=== PATIENT | male | born 1955 | race Caucasian/White ===

== ENCOUNTER 2021-02-24 10:52 | Outpatient (RCR) | payer MEDICARE, OTHER ==
[2021-05-14] MEDS ORDERED: GABA800T10 PO (13:25)
[2021-05-14] MEDS ORDERED: DILT120C85 PO (13:25)
[2021-05-14] MEDS ORDERED: ATOR20TA66 PO (13:25)
[2021-05-14] MEDS ORDERED: GLIP10TA13 PO (13:25)
[2021-05-14] MEDS ORDERED: METF-399 PO (13:25)
[2021-05-21] MEDS ORDERED: TRAM50TA3 PO (10:46)
[2021-05-21] MEDS ORDERED: CIPR-226 PO (10:46)
[2021-05-21] MEDS ORDERED: ACET1TAB43 PO (12:58)
== END 2021-05-25 | disposition home or self-care (01) ==
LOC: ONC 10:52
PROVIDERS: ATTEND Radiology Radiation Oncology
DX: C61 Malignant neoplasm of prostate (principal); E11.9 Type 2 diabetes mellitus without complications; I10 Essential (primary) hypertension; Z87.891 Personal history of nicotine dependence
CPT/HCPCS: 76873; G0463; 99205

== ENCOUNTER 2021-05-14 05:34 | Outpatient (CLI) | payer MEDICARE ==
[~2021-05-14] VITALS: Ht 175.3 cm; Wt 117.7 kg
[2021-05-14] MEDS ORDERED: ATOR20TA66 PO (13:25)
[2021-05-14] MEDS ORDERED: DILT120C85 PO (13:25)
[2021-05-14] MEDS ORDERED: GLIP10TA13 PO (13:25)
[2021-05-14] MEDS ORDERED: GABA800T10 PO (13:25)
[2021-05-14] MEDS ORDERED: METF-399 PO (13:25)
== END 2021-05-14 14:01 ==
LOC: PREOP 05:34
PROVIDERS: ATTEND Radiology Radiation Oncology
DX: Z01.818 Encounter for other preprocedural examination (principal)

== ENCOUNTER 2021-05-21 09:57 | Day surgery (SDC) | payer MEDICARE ==
[~2021-05-21] VITALS: Ht 175.3 cm; Wt 117.7 kg
[2021-05-21] VITALS (12 sets, daily range): BP systolic 140–191; BP diastolic 73–96
[~2021-05-21 09:57] MED LIST: ATOR20TA66 PO; DILT120C85 PO; GABA800T10 PO; GLIP10TA13 PO; METF-399 PO
[2021-05-21] MEDS ORDERED: LACTATED RINGERS 1,000 ML IV PRN (10:15)
--- OUTSIDE RECORDS SUMMARY | 2021-05-21 10:40 | XMS REPORT | Clinical Summary ---
Author Author [facility] Organization [facility] Address Unknown Phone Unavailable Care Team Providers Care Casino Surveillance Officer Name Role Phone BernadetteCarloscitlalliAlbin Rigoberto DO PCP VickFabian DO Unavailable Source Comments Some departments are not documenting in the electronic medical record. If you d o not see the information that you expected, contact Release of Information in [facility] [employer] Information Management department at [phone] for further assistan ce in locating additional records.[facility] Allergies No Known Active Allergies Medications End Date Status Medication Sig Dispensed Refills Start Date Active glipiZIDE (GLUCOTROL) 10 Take 10 mg by 0 mg tablet mouth daily. Active atorvastatin (LIPITOR) 20 Take 20 mg by 0 mg tablet mouth daily. Active ascorbic acid (KRISTIE-C PO) Take by 0 mouth daily. Active dilTIAZem HCL (CARDIZEM) Take by 0 120 mg tablet mouth every 6 hours. Active Ferrous Sulfate 325 mg Take by 0 (65 mg iron) cpER mouth daily. Active pioglitazone (ACTOS) 15 Take 15 mg by 0 mg tablet mouth daily. Active furosemide (LASIX) 40 mg Take 40 mg by 0 tablet mouth every morning. Active meloxicam (MOBIC) 7.5 mg Take 7.5 mg 0 tablet by mouth daily. Active cyclobenzaprine Take 10 mg by 0 (FLEXERIL) 10 mg tablet mouth FLUSH TID. Active Problems No known active problems Surgical History Surgery Date Site/Laterality Comments BRAIN SURGERY 09/13/1999 - 09/12/2000 NECK SURGERY 09/13/2017 - 09/12/2018 LUNG BIOPSY 09/13/2018 - 09/12/2019 Medical History Medical History Date Comments Diabetes mellitus (HCC) Cancer of prostate (HCC) Social History Date Tobacco Use Types Packs/Day Years Used Quit: 07/24/1998 Former Smoker Smokeless Tobacco: Never Used Comments Alcohol Use Standard Drinks/Week quit in 1990 Not Currently 0 (1 standard drink = 0.6 o z pure alcohol) Alcohol Habits Answer Date Recorded How often do you have a drink containing alcohol? Never 10/25/2019 How many drinks containing alcohol do you have on No t asked a typical day when you are drinking? How often do you have six or more drinks on one Not asked occasion? Comment: quit in 199010/25/2019 Sex Assigned at Date Recorded Not on file Last Filed Vital Signs Reading Time Taken Comments Vital Sign 159/60 10/25/2019 1:23 PM [employer] Blood Pressure 93 10/25/2019 1:23 PM [employer] Pulse 37.2 C (98.9 F) 10/25/2019 1:23 PM [employer] Temperature 16 10/25/2019 1:23 PM [employer] Respiratory Rate 87% 10/25/2019 1:23 PM [employer] Oxygen Saturation - - Inhaled Oxygen Concentration 126.2 kg (278 lb 3.2 oz) 10/25/2019 1:23 PM [employer] Weight 168.5 cm (5' 6.34") 10/25/2019 1:23 PM [employer] Height 44.44 10/25/2019 1:23 PM [employer] Body Mass Index Plan of Treatment Health Maintenance Due Date Last Done Comments HIV SCREENING 12/28/1971 DTAP/TDAP VACCINES (1 - 1974 Tdap) HEPATITIS C SCREENING 1974 PHYSICAL (COMPREHENSIVE) 1974 EXAM COLORECTAL CANCER 2006 SCREENING SHINGLES RECOMBINANT 2006 VACCINE (1 of 2) INFLUENZA VACCINE 06/13/2021 Results Not on filefrom Last 3 Months Insurance Type Payer Benefit Subscriber ID Effective Phone Address Plan / Dates Group MCKAYLAVERARigoberto BLOCKALE [id number] IMELDA villaseñor Advance Directives Patient Can Operator Explanation Type Date Recorded Advance Directive/DPOA
--- NOTE | 2021-05-21 10:42 | Progress Note-Pre Operative ---
Pre-Operative Progress Note H&P Reviewed The H&P was reviewed, patient examined and no changes noted. Date Seen by Provider: May 21, 2021 Time Seen by Provider: 10:41 Date H&P Reviewed: May 21, 2021 Time H&P Reviewed: 10:41 Pre-Operative Diagnosis: Prostate cancer cT1c, PSA 10, [place] 7 (4+3) CARSON KHAN MD May 21, 2021 10:42
[2021-05-21] MEDS ORDERED: TRAM50TA3 PO (10:46)
[2021-05-21] MEDS ORDERED: CIPR-226 PO (10:46)
--- NOTE | 2021-05-21 10:48 | Discharge Inst-Simple/Standard ---
Discharge Inst-Standard Reconcile Patient Problems Problems Reviewed?: Yes Discharge Medications New, Converted or Re-Newed RX: RX Given to Pt/Family Patient Instructions/Follow Up Plan of Care/Instructions/FU: 1) one month post implant scan at [facility] cancer center 06/18/21 at 11:00 am 2) one month follow up with Dr. Jarrett (for Dr. Ta) at [facility] 06/17/21 at 10:00 am Activity as Tolerated: Yes Discharge Diet: No Restrictions Other Inst to Patient Please instruct patient on lacy catheter care and self removal on Wednesday05/26/21 mail deliverer. CARSON KHAN MD May 21, 2021 10:48
[2021-05-21] MEDS ORDERED: MIDAZOLAM 2 MG/2 ML (VERSED) VIAL ONE ×2 (12:23→13:09)
[2021-05-21] MEDS ORDERED: ACET1TAB43 PO (12:58)
[2021-05-21] MEDS ORDERED: proPOfol 200 MG/20 ML (DIPRIVAN) VIAL IV ONE (13:05)
[2021-05-21] MEDS ORDERED: BACITRACIN OINTMENT 28 GM TUBE ONE (13:57)
--- NOTE | 2021-05-21 14:08 | Anesthesia-Regional Post-Op ---
Regional Patient Condition Mental Status: Alert, Oriented x3 Circulation: Same as Pre-Op Headache: Absent Sensation: Full Recovery Motor Block: Absent Post Op Complications Complications None Follow Up Care/Instructions Patient Instructions None needed. Anesthesia/Patient Condition Patient is doing well, no complaints, stable vital signs, no apparent adverse anesthesia problems. No complications reported per nursing. ELVIN GODINEZ CRNA May 21, 2021 14:08
[2021-05-21] MEDS ORDERED: NALOXONE 0.4 MG/ML 1 ML (NARCAN) VIAL IV PRN ×2 (14:15)
[2021-05-21] MEDS ORDERED: METOCLOPRAMIDE INJ 10 MG/2 ML (REGLAN) IV PRN (14:15)
[2021-05-21] MEDS ORDERED: diphenhydrAMINE 50 MG/ML INJ (BENADRYL) IV PRN (14:15)
[2021-05-21] MEDS ORDERED: fentaNYL INJ 100 MCG/2 ML AMP INJ ONE (14:15)
[2021-05-21] MEDS ORDERED: ONDANSETRON 4 MG/2 ML (SDV) Z0FRAN IV PRN (14:15)
[2021-05-21] MEDS ORDERED: LACTATED RINGERS 1,000 ML IV ONE (14:15)
--- NOTE | 2021-05-21 14:19 | Progress Note-Post Operative ---
Post-Operative Progess Note Surgeon (s)/Drum Sealer (s) Surgeon CARSON KHAN MD Drum Sealer: Bea MENDEZ MD Pre-Operative Diagnosis Prostate cancer cT1c, PSA 10, [place] 7 (4+3) Post-Operative Diagnosis Same as pre op Procedure & Operative Findings Date of Procedure 05/21/21 Procedure Performed/Findings (1) 100% Cesium 131 permanent prostate seed implant (2) Injection of biodegradable hydrogel prostate-rectal spacer utilizing the SpaceOAR system (3) Cystogram Prostate volume 32.9 cc Anesthesia Type Spinal Estimated Blood Loss Estimated blood loss (mL): Minimal Specimens/Packing Specimens Removed None Packing: None CARSON KHAN MD May 21, 2021 14:19
--- NOTE | 2021-05-21 16:17 | Diagnostic Imaging Report ---
INDICATION: Prostate cancer. EXAMINATION: Single fluoroscopic view was obtained with a portable intensifier in surgery. FINDINGS: 14 seconds of fluoroscopy time was used. Multiple radiation seed implants are visible over the region of the prostate gland. IMPRESSION: Intraoperative view obtained during brachytherapy per Dr. Morales. Dictated by: Dictated on workstation # [id number]
== END 2021-05-21 18:25 ==
LOC: SDC 09:57
PROVIDERS: ATTEND Radiology Radiation Oncology
DX: C61 Malignant neoplasm of prostate (principal); I10 Essential (primary) hypertension; I48.91 Unspecified atrial fibrillation; J61 Pneumoconiosis due to asbestos and other mineral fibers; J98.4 Other disorders of lung; E11.9 Type 2 diabetes mellitus without complications; M19.90 Unspecified osteoarthritis, unspecified site; E66.9 Obesity, unspecified; M89.29 Other disorders of bone development and growth, multiple sites; M54.9 Dorsalgia, unspecified; Z79.899 Other long term (current) drug therapy; Z79.84 Long term (current) use of oral hypoglycemic drugs; Z87.891 Personal history of nicotine dependence; Z99.81 Dependence on supplemental oxygen; Z68.38 Body mass index [BMI] 38.0-38.9, adult
CPT/HCPCS: 55874; 55876; 76000; 76965; 77290; 77318; 77332; 77370; 77470; 77778; 82947; 87081; C1715 ×2; C1889; C2643

== ENCOUNTER 2021-06-18 10:53 | Outpatient (RCR) | payer MEDICARE, OTHER ==
[~2021-06-18 10:53] MED LIST changes: +ACET1TAB43 PO; +CIPR-226 PO; +TRAM50TA3 PO
== END 2021-09-12 | disposition home or self-care (01) ==
LOC: ONC 10:53
PROVIDERS: ATTEND Radiology Radiation Oncology
DX: C61 Malignant neoplasm of prostate (principal); E11.9 Type 2 diabetes mellitus without complications; I10 Essential (primary) hypertension; Z87.891 Personal history of nicotine dependence
CPT/HCPCS: 77290; 77295